=== PATIENT | female | born 1970 | race Hispanic/Latino ===

== ENCOUNTER 2018-12-04 02:38 | Emergency (ER) | payer SELFPAY ==
[2018-12-04 03:12] LABS: APPEARANCE,URINE Clear (CLEAR); BILIRUBIN,URINE Small (NEGATIVE); COLOR,URINE Dark Yellow (YELLOW); GLUCOSE, URINE (UA) 250 mg/dL (NEGATIVE); KETONES,URINE >=80 mg/dL (NEGATIVE); LEUKOCYTE ESTERASE ,URINE Trace (NEGATIVE); NITRATE,URINE Negative (NEGATIVE); OCCULT BLOOD,URINE Negative (NEGATIVE); PROTEIN,URINE POS 2+ (NEGATIVE)
[2018-12-04 03:12] LABS: BASOPHILS % (AUTO) 1.2 % (0.0-5.0); EOSINOPHILS % (AUTO) 4.1 % (0.0-8.0); HEMATOCRIT 43.2 % (36-48); MEAN CORPUSCULAR HEMOGLOBIN 31.4 pg (27.0-33.0); MEAN CORPUSCULAR HGB CONC 34.4 g/dL (32.0-36.0); MEAN CORPUSCULAR VOLUME 91.4 fL (79-99); MONOCYTES % (AUTO) 9.6 % (3.0-13.0); NEUTROPHILS % (AUTO) 56.1 % (40.0-77.0); NUCLEATED RED BLOOD CELLS 0.1 % (0.0-0.19); PLATELET COUNT (AUTO) 301 K/uL (130-400); RED BLOOD CELL COUNT(AUTO) 4.72 MIL/uL (4.00-5.50); RED CELL DISTRIBUTION WIDTH 13.9 % (11.0-15.5); WHITE BLOOD COUNT (AUTO) 8.6 K/uL (4.8-10.8)
[2018-12-04 03:22] LABS: CREATININE 0.8 mg/dL (0.5-1.5); POTASSIUM 3.6 mmol/L (3.5-5.1)
[2018-12-04 03:26] LABS: ALBUMIN 3.9 g/dL (3.5-5.0); BILIRUBIN,TOTAL 0.3 mg/dL (0.2-1.0); TOTAL PROTEIN, SERUM 7.7 g/dL (6.0-8.3)
[2018-12-04 03:34] LABS: BACTERIA,URINE Few /HPF (None Seen); RBC,URINE None Seen /HPF (0-1); YEAST,URINE BUDDING Few /HPF (None Seen)
[2018-12-04 03:35] LABS: MUCUS,URINE Moderate LPF (None Seen); SQUAMOUS EPITHELIAL CELL,UR Many /HPF (0-2)
[2018-12-04] MEDS ORDERED: KETOROLAC TROMETHAMINE 30MG/ML ONE (04:03)
[2018-12-04] MEDS ORDERED: ONDANSETRON HCL 4 MG/2 ML VIAL ONE ×2 (04:03→08:24)
[2018-12-04] MEDS ORDERED: FAMOTIDINE/PF 20 MG/2 ML VIAL IV ONE (04:03)
[2018-12-04] MEDS ORDERED: HYOSCYAMINE SULFATE 0.125 MG TAB.SUBL SL ONE (06:15)
[2018-12-04] MEDS ORDERED: MORPHINE SULFATE 2 MG/ML 1ML SYG ONE (08:24)
== END 2018-12-04 09:15 | disposition home or self-care (01) ==
LOC: EDH 02:38
DX: E86.0 Dehydration (principal); R73.9 Hyperglycemia, unspecified; R10.13 Epigastric pain; Z88.0 Allergy status to penicillin; Z90.710 Acquired absence of both cervix and uterus; Z90.49 Acquired absence of other specified parts of digestive tract
CPT/HCPCS: 36415; 74176; 76705; 80053; 81001; 82550; 83690; 84484; 85025; 93005; 96361; 96374; 96375; 96376; 99284; J1885; J2405 ×2; J3490

== ENCOUNTER 2019-05-04 10:20 | Inpatient (IN) | payer SELFPAY ==
[~2019-05-04] VITALS: Ht 157.5 cm; Wt 70.0 kg
[2019-05-04] MEDS ORDERED: EPINEPHRINE 1 MG/ML AMPULE ONE (10:26)
[2019-05-04] MEDS ORDERED: DiphenhydrAMINE HCL 50 MG/ML VIAL ONE ×2 (10:26→18:11)
[2019-05-04] MEDS ORDERED: METHYLPREDNISOLONE SOD SUCC 125MG/2ML VIAL ONE ×2 (10:26→18:11)
[2019-05-04] MEDS ORDERED: FAMOTIDINE/PF 20 MG/2 ML VIAL IV ONE ×2 (10:27→22:00)
[2019-05-04] MEDS ORDERED: ALBUTEROL SULFATE 0.083% 2.5 MG/3 ML INH IH ONE (10:33)
[2019-05-04 11:16] LABS: BASOPHILS % (AUTO) 0.5 % (0.0-5.0); EOSINOPHILS % (AUTO) 1.6 % (0.0-8.0); HEMATOCRIT 47.8 % (36-48); LYMPHOCYTES % (AUTO) 16.9 % (21.0-51.0); MEAN CORPUSCULAR HEMOGLOBIN 30.7 pg (27.0-33.0); MEAN CORPUSCULAR HGB CONC 34.1 g/dL (32.0-36.0); MEAN CORPUSCULAR VOLUME 90.1 fL (79-99); MONOCYTES % (AUTO) 6.2 % (3.0-13.0); NEUTROPHILS % (AUTO) 74.8 % (40.0-77.0); PLATELET COUNT (AUTO) 320 K/uL (130-400); RED CELL DISTRIBUTION WIDTH 14.4 % (11.0-15.5)
[2019-05-04 11:26] LABS: CREATININE 0.8 mg/dL (0.5-1.5); POTASSIUM 3.7 mmol/L (3.5-5.1)
[2019-05-04 11:29] LABS: ALBUMIN 3.6 g/dL (3.5-5.0); BILIRUBIN,DIRECT 0.1 mg/dL (0.0-0.3); BILIRUBIN,TOTAL 0.2 mg/dL (0.2-1.0); TOTAL PROTEIN, SERUM 7.2 g/dL (6.0-8.3)
[2019-05-04 11:30] LABS: BILIRUBIN,URINE Negative (NEGATIVE); COLOR,URINE Yellow (YELLOW); GLUCOSE, URINE (UA) Negative (NEGATIVE); KETONES,URINE Trace mg/dL (NEGATIVE); LEUKOCYTE ESTERASE ,URINE Trace (NEGATIVE); NITRATE,URINE Negative (NEGATIVE); OCCULT BLOOD,URINE Negative (NEGATIVE); PH,URINE 5.5 (5.0-8.0); PROTEIN,URINE POS 1+ mg/dL (NEGATIVE)
[2019-05-04 11:31] LABS: APPEARANCE,URINE SLIGHTLY CLOUDY (CLEAR)
[2019-05-04 11:50] LABS: BACTERIA,URINE Moderate /HPF (None Seen); MUCUS,URINE Moderate LPF (None Seen); RBC,URINE None Seen /HPF (0-1); WBC,URINE 0-1 /HPF (0-1)
[2019-05-04] MEDS ORDERED: HYDRALAZINE HCL 20 MG/ML VIAL IV PRN (14:15)
[2019-05-04] MEDS ORDERED: ENOXAPARIN SODIUM 40 MG/0.4 ML SYRINGE SQ ONE (14:44)
[2019-05-04] MEDS: METHYLPREDNISOLONE SOD SUCC 125MG/2ML VIAL IV SCH (18:00)
[2019-05-04] MEDS: FAMOTIDINE/PF 20 MG/2 ML VIAL IV SCH (21:00)
[2019-05-04] MEDS: DiphenhydrAMINE HCL 50 MG/ML VIAL IV SCH (22:00)
[2019-05-04 23:57] VITALS: BP 111/77
[2019-05-05] MEDS ORDERED: METF-444 PO (02:35)
[2019-05-05] MEDS: METHYLPREDNISOLONE SOD SUCC 125MG/2ML VIAL IV SCH ×3 (02:57→17:38)
[2019-05-05 03:44] VITALS: BP 108/69
[2019-05-05] MEDS: DiphenhydrAMINE HCL 50 MG/ML VIAL IV SCH ×2 (06:28→14:51)
[2019-05-05 07:30] VITALS: BP 118/66
[2019-05-05] MEDS: ENOXAPARIN SODIUM 40 MG/0.4 ML SYRINGE SQ SCH (08:36)
[2019-05-05] MEDS: FAMOTIDINE/PF 20 MG/2 ML VIAL IV SCH ×2 (08:36→20:45)
[2019-05-05] MEDS ORDERED: ENOXAPARIN SODIUM 40 MG/0.4 ML SYRINGE SQ SCH (09:00)
[2019-05-05 11:00] VITALS: BP 121/64
[2019-05-05] MEDS ORDERED: GUAIFENESIN-DM 200/20 MG 10 ML PO PRN (13:30)
[2019-05-05] MEDS ORDERED: LEVOFLOXACIN 500 MG/D5W 100 ML 100 ML IV SCH (14:00)
[2019-05-05 16:00] VITALS: BP 100/73
--- NOTE | 2019-05-05 16:00 | NUR ---
INITIAL Met w pt, aaox3, indp, employed, lives w family, dcp home, uninsured, community resource discussed will place in chart for dc pkt, Addendum: 05/06/19 at 1817 by AMANDA NEFF RN CM Amended: Links added.
[2019-05-05] MEDS: INSULIN HUMULIN R 100 UNIT/ML 3ML SQ SCH ×2 (17:36→20:46)
[2019-05-05] MEDS: IPRATROPIUM/ALBUTEROL SULFATE 3 ML SOLUTION IH SCH ×2 (19:31→23:28)
[2019-05-05 19:48] VITALS: BP 112/70
[2019-05-05] MEDS ORDERED: SIMVASTATIN 10 MG TABLET PO SCH (23:30)
[2019-05-06] VITALS: BP 123/66
[2019-05-06] MEDS: DiphenhydrAMINE HCL 50 MG/ML VIAL IV SCH ×2 (00:14→08:23)
[2019-05-06] MEDS: METHYLPREDNISOLONE SOD SUCC 125MG/2ML VIAL IV SCH ×2 (02:15→10:00)
[2019-05-06 04:00] VITALS: BP 115/68
[2019-05-06 04:02] LABS: MEAN CORPUSCULAR HEMOGLOBIN 31.1 pg (27.0-33.0); MEAN CORPUSCULAR HGB CONC 34.3 g/dL (32.0-36.0); MEAN CORPUSCULAR VOLUME 90.7 fL (79-99); NUCLEATED RED BLOOD CELLS 0.1 % (0.0-0.19); PLATELET COUNT (AUTO) 325 K/uL (130-400); RED BLOOD CELL COUNT(AUTO) 4.52 MIL/uL (4.00-5.50); RED CELL DISTRIBUTION WIDTH 14.6 % (11.0-15.5); WHITE BLOOD COUNT (AUTO) 9.3 K/uL (4.8-10.8)
[2019-05-06 04:18] LABS: CREATININE 0.6 mg/dL (0.5-1.5); POTASSIUM 4.3 mmol/L (3.5-5.1)
[2019-05-06] MEDS: INSULIN HUMULIN R 100 UNIT/ML 3ML SQ SCH (06:36)
[2019-05-06] MEDS: IPRATROPIUM/ALBUTEROL SULFATE 3 ML SOLUTION IH SCH ×2 (07:11→11:44)
[2019-05-06 07:30] VITALS: BP 123/78
[2019-05-06] MEDS ORDERED: METFORMIN HCL 500 MG TAB.SR.24H PO SCH (08:00)
[2019-05-06] MEDS ORDERED: EPIN0.3P2 IM (09:06)
[2019-05-06] MEDS: FAMOTIDINE/PF 20 MG/2 ML VIAL IV SCH (09:06)
[2019-05-06] MEDS: ENOXAPARIN SODIUM 40 MG/0.4 ML SYRINGE SQ SCH (09:07)
[2019-05-06] MEDS ORDERED: METF-444 PO (09:10)
[2019-05-06] MEDS ORDERED: GLIP5TAB11 PO (09:17)
[2019-05-06] MEDS ORDERED: LEVO750T21 PO (09:20)
[2019-05-06] MEDS ORDERED: PRED20TA3 PO (10:27)
== END 2019-05-06 11:30 | disposition home or self-care (01) | DRG 915 ==
LOC: EDH 10:20 → EDHIP 14:06 → 4CH 19:47
PROVIDERS: ADMIT Internal Medicine; ATTEND Internal Medicine
DX: T88.6XXA Anaphylactic reaction due to adverse effect of correct drug or medicament properly administered, initial encounter (principal); J18.9 Pneumonia, unspecified organism; T39.1X5A Adverse effect of 4-Aminophenol derivatives, initial encounter; E11.9 Type 2 diabetes mellitus without complications; I10 Essential (primary) hypertension; Y84.8 Other medical procedures as the cause of abnormal reaction of the patient, or of later complication, without mention of misadventure at the time of the procedure; T78.3XXA Angioneurotic edema, initial encounter; Z79.84 Long term (current) use of oral hypoglycemic drugs; Z82.49 Family history of ischemic heart disease and other diseases of the circulatory system; Z83.3 Family history of diabetes mellitus; Z88.0 Allergy status to penicillin; Z90.710 Acquired absence of both cervix and uterus; Z90.49 Acquired absence of other specified parts of digestive tract; Y92.89 Other specified places as the place of occurrence of the external cause
CPT/HCPCS: 36415; 71045; 80048; 80076; 81001; 82550; 82948; 83605; 84484; 85025; 85027; 87040; 94640; 94664; 99291; G0378; J0171; J1200; J1650; J1815; J1956; J2930; J3490